=== PATIENT | female | born 1960 | race Hispanic/Latino ===

== ENCOUNTER 2017-05-10 11:44 | Day surgery (SDC) | payer OTHER ==
[2017-05-10] MEDS ORDERED: MYDRIACYL ONE (11:46)
[2017-05-10] MEDS ORDERED: IOPIDINE ONE (11:46)
[2017-05-10] MEDS ORDERED: NEOFRIN ONE (11:47)
[2017-05-10] MEDS ORDERED: IOPIDINE OD ONE (12:50)
[2017-05-10] MEDS ORDERED: NEOFRIN OD ONE (12:50)
[2017-05-10] MEDS ORDERED: MYDRIACYL OD ONE (12:50)
[2017-05-10 13:29] VITALS: BP 104/62
== END 2017-05-10 13:47 | disposition home or self-care (01) ==
LOC: OR 11:44
PROVIDERS: ATTEND Specialist
DX: H26.492 Other secondary cataract, left eye (principal)